=== PATIENT | male | born 1995 | race Caucasian/White ===

== ENCOUNTER 2017-05-08 09:58 | Emergency (ER) | payer OTHER ==
[2017-05-08] MEDS ORDERED: LORazepam 2 MG/ML SYRINGE IM STA (10:24)
[2017-05-08] MEDS ORDERED: KETOROLAC 60 MG/2 ML VIAL IM STA (10:25)
[2017-05-08 10:33] LABS: Glucose,Whole Blood 95 mg/dL (75-99)
--- NOTE | 2017-05-08 10:59 | XR ---
Lumbar spine HISTORY: Low back pain 3 views of the lumbar spine No comparisons Bone mineralization, joint spaces and alignment are maintained with the exception of some possible hellen int space loss at L5-S1. No paraspinal mass. IMPRESSION: There may be some degenerative disc change L5-S1.
--- NOTE | 2017-05-08 11:01 | XR ---
EXAMINATION TYPE: XR chest 2V DATE OF EXAM: 05/08/2017 COMPARISON: NONE HISTORY: Syncope TECHNIQUE: Frontal and lateral views of the chest are obtained. FINDINGS: There is no focal air space opacity, pleural effusion, or pneumothorax seen. The cardiac silhouette size is within normal limits. The osseous structures are intact. IMPRESSION: No acute cardiopulmonary process.
[2017-05-08 11:12] LABS: Appearance,Urine Clear (Clear); Bilirubin,Urine Negative (Negative); Glucose,Urine (UA) Negative (Negative); Ketones,Urine 3+ (Negative); Leukocyte Esterase,Urine Negative (Negative); Mucus,Urine Occasional /hpf; Nitrite,Urine Negative (Negative); PH, Urine 8.5 (5.0-8.0); Particle Count 5166; Protein,Urine 1+ (Negative); RBC,Urine 2 /hpf (0-5); Specific Gravity,Urine 1.023 (1.001-1.035); UA Billing (MACRO vs. MICRO) MICRO; WBC,Urine 1 /hpf (0-5)
--- NOTE | 2017-05-08 11:19 | ED ---
General Adult HPI - General Chief complaint: Syncope Stated complaint: syncope Time Seen by Provider: 05/08/17 10:19 Source: patient Mode of arrival: wheelchair Limitations: no limitations - History of Present Illness Initial comments: This 21-year-old white male presents with the complaint of some low back pain. He states that this occurred this morning at around 7 AM. He denies any actual injury. He states that it was fairly severe. It occurred while at work. He apparently got quite anxious and was hyperventilating. He became very lightheaded and dizzy and states that his hands were cramping up and feeling heavy. He apparently had a syncopal episode. He was having significant hyperventilation. He states that his symptoms are somewhat better at this time but still present. He denies any actual chest pain. He denies any trauma. He denies any previous known anxiety reactions. No modifying factors. He does smoke but denies any alcohol or drugs. He denies any chronic medical conditions. He relates that the pain in his back is similar as when he had pneumonia previously. He does relate a slight cough as well. - Related Data Previous Rx's Medication Instructions Recorded Diazepam [Valium] 2 mg PO QID PRN #15 tab 05/08/17 Ibuprofen [Motrin] 800 mg PO Q8H PRN #20 tab 05/08/17 Allergies Allergy/AdvReac Type Severity Reaction Status Date / Time No Known Allergies Allergy Verified 05/08/17 11:03 Review of Systems ROS Statement: Those systems with pertinent positive or pertinent negative responses have been documented in the HPI. ROS Other: All systems not noted in ROS Statement are negative. Past Medical History Past Medical History: No Reported History History of Any Multi-Drug Resistant Organisms: None Reported Past Surgical History: No Surgical Hx Reported Past Psychological History: No Psychological Hx Reported Smoking Status: Current every day smoker Past Alcohol Use History: None Reported Past Drug Use History: Marijuana General Exam - General Exam Comments Initial Comments: GENERAL: The patient is well nourished and well hydrated. VITAL SIGNS: Heart rate, blood pressure, respiratory rate reviewed as recorded in nurse's notes. EYES: Pupils are round and reactive. Extraocular movements are intact. No conjunctival / lid redness or swelling. ENT: No external evidence of injury, swelling, or ecchymosis. Airway is patent. Throat is clear. NECK: Nontender. No swelling or evidence of injury. No subcutaneous emphysema. Trachea is midline. No thyroid mass. HEART: Regular rate and rhythm. Good peripheral pulses. LUNGS/CHEST: Breath sounds clear and equal bilaterally. No rales, rhonchi, or wheezes. No ecchymosis, subcutaneous emphysema, or tenderness. ABDOMEN: Abdomen soft without tenderness. No palpable masses or organomegaly. No peritoneal signs. No abdominal wall swelling or ecchymosis. EXTREMITIES: No extremity tenderness. Normal muscle tone and function. There is some tenderness in the bilateral lumbar region in the paraspinal musculature but not over the vertebral. NEUROLOGIC: Sensation is grossly intact. Cranial nerve exam reveals face is symmetrical, tongue is midline, speech is clear. SKIN: No abrasions or ecchymosis is noted. No induration or masses noted. PSYCHIATRIC: Alert and oriented. Appears very anxious. Limitations: no limitations Course Vital Signs 05/08/17 10:02 Temperature 97.8 F Pulse Rate 108 H Respiratory 32 H Rate Blood Pressure 135/93 O2 Sat by Pulse 100 Oximetry Medical Decision Making - Medical Decision Making The patient was seen and examined. All diagnostics were reviewed. An EKG was done which shows a normal sinus rhythm at a rate of 73. There is no acute ST-T wave changes identified. The MO interval is 138, the QRS duration is 86, and the QTc interval is 385. He does receive some Toradol and Ativan IM. The chest x-ray did not show any evidence of pneumonia or acute process. The lumbar spine x-ray showed some slight degenerative changes at L5-S1 but no acute processes noted. The blood sugar is normal. Overall, is felt that he likely does have a lumbar strain. He also had an anxiety reaction. He is remarkably improved on recheck after receiving the medications. Is counseled regarding his diagnoses in detail and leaves in no severe distress. - Lab Data Lab Results 05/08/17 05/08/17 Range/Units 10:20 10:30 POC Glucose (mg/dL) 95 (75-99) mg/dL POC Glu [employer] Analyst ID Kate [place] Urine Color Yellow Urine Appearance Clear (Clear) Urine pH 8.5 H (5.0-8.0) Ur Specific [place] 1.023 (1.001-1.035) Urine Protein 1+ H (Negative) Urine Glucose (UA) Negative (Negative) Urine Ketones 3+ H (Negative) Urine Blood Negative (Negative) Urine Nitrite Negative (Negative) Urine Bilirubin Negative (Negative) Urine Urobilinogen 2.0 (<2.0) mg/dL Ur Leukocyte Esterase Negative (Negative) Urine RBC 2 (0-5) /hpf Urine WBC 1 (0-5) /hpf Urine Mucus Occasional H (None) /hpf Disposition Clinical Impression: Lumbar back pain, Cough, Anxiety reaction, Degenerative disc disease at L5-S1 level Disposition: HOME SELF-CARE Condition: Good Instructions: Low Back Strain (ED), Osteoarthritis (ED), Panic Attack (ED) Prescriptions: Diazepam [Valium] 2 mg PO QID PRN #15 tab PRN Reason: Anxiety Ibuprofen [Motrin] 800 mg PO Q8H PRN #20 tab PRN Reason: Pain Referrals: None,Stated [Primary Care Provider] - 1-2 days Time of Disposition: 11:36
[2017-05-08 11:48] VITALS: BP 105/68; PULSE 87; RESP 18; TEMP 98.9
== END 2017-05-08 11:48 | disposition home or self-care (01) ==
LOC: EC 09:58
DX: M51.37 Other intervertebral disc degeneration, lumbosacral region (principal); F41.1 Generalized anxiety disorder; R05 Cough; F17.200 Nicotine dependence, unspecified, uncomplicated
CPT/HCPCS: 36415; 93005; 81001; 71020; 72100; 99284; 96372 ×2; J2060; J1885

== ENCOUNTER 2024-03-15 20:19 | Emergency (ER) | payer BC ==
[2024-03-15 20:52] VITALS: TEMP 98
--- NOTE | 2024-03-15 21:22 | ED ---
Head Injury HPI - General Chief complaint: Wound/Laceration Stated complaint: Facial Swelling-Sports Injury Time Seen by Provider: 03/15/24 21:01 Source: patient, RN notes reviewed Mode of arrival: ambulatory Limitations: no limitations - History of Present Illness Initial comments: This is a 28-year-old male who presents to the emergency department for a head injury. Patient was playing softball this evening and was fielding a ground ball at second base. States that the ball came up and hit him in the face. Pain and swelling is primarily underneath the left eye. Denies any difficulty with his vision or pain to the eye itself. He does have some lacerations to the cheek, unsure when his last tetanus vaccine was. Denies any loss of consciousn ess. Does not take any blood thinners. MD Complaint: head injury - Related Data Previous Rx's Medication Instructions Recorded Ibuprofen [Motrin] 800 mg PO Q8H PRN #20 tab 05/08/17 diazePAM [Valium] 2 mg PO QID PRN #15 tab 05/08/17 Amoxic-Pot Clav 875-125Mg 1 tab PO Q12HR 7 Days #14 tab 03/15/24 [Augmentin 875-125] Naproxen Sodium 550 mg PO BID PRN #20 tablet 03/15/24 predniSONE 50 mg PO DAILY 3 Days #3 tab 03/15/24 Allergies/Adverse reactions: Allergies Allergy/AdvReac Type Severity Reaction Status Date / Time No Known Allergies Allergy Verified 03/15/24 20:52 Review of Systems ROS Statement: Those systems with pertinent positive or pertinent negative responses have been documented in the HPI. ROS Other: All systems not noted in ROS Statement are negative. Past Medical History Past Medical History: No Reported History History of Any Multi-Drug Resistant Organisms: None Reported Past Surgical History: No Surgical Hx Reported Past Psychological History: No Psychological Hx Reported Smoking Status: Current every day smoker, Vaper Past Alcohol Use History: None Reported Past Drug Use History: Marijuana General Exam Limitations: no limitations General appearance: alert, in no apparent distress Head exam: Present: other (Swelling and ecchymosis just inferior to the left eye. Superficial lacerations over the area of ecchymosis with minor active bleeding.) Eye exam: Present: PERRL, EOMI ENT exam: Present: TM's normal bilaterally, normal external ear exam, other (No septal hematoma bilaterally) Respiratory exam: Present: normal lung sounds bilaterally. Absent: respiratory distress, wheezes, rales, rhonchi, stridor Cardiovascular Exam: Present: regular rate, normal rhythm, normal heart sounds. Absent: systolic murmur, diastolic murmur, rubs, gallop, clicks Neurological exam: Present: alert, oriented X3, CN II-XII intact Psychiatric exam: Present: normal affect, normal mood Course Vital Signs 03/15/24 03/15/24 20:48 22:26 Temperature 98.0 F Pulse Rate 88 67 Respiratory 26 H 16 Rate Blood Pressure 123/81 116/87 O2 Sat by Pulse 97 99 Oximetry Procedures - Laceration Laceration #1 Consent Obtained: verbal consent Indication: laceration Site: face Size (cm): 2 Description: linear Depth: simple, single layer Type of Sutures: other (Exofin) Medical Decision Making - Medical Decision Making This is a 28 year old male who presents to the emergency department for a head injury. Was pt. sent in by a medical professional or institution? @ -No Did you speak to anyone other than the patient for history? @ -No Did you review nursing and triage notes? @ -Yes, and I agree, it is accurate with regards to the patient's symptoms. Were old charts reviewed? @ -No Differential Diagnosis? @ -Differential Diagnosis Head Injury: Contusion, hematoma, intracranial hemorrhage, skull fracture, whiplash, concussion, this is not meant to be an all-inclusive list. EKG interpreted by me (3pts min.)? @ -Not obtained X-rays interpreted by me (1pt min.)? @ -Not obtained CT interpreted by me (1pt min.)? @ -CT scan of the brain and facial bones obtained. My interpretation identifies a left maxillary sinus fracture. U/S interpreted by me (1pt. min.)? @ -Not obtained What testing was considered but not performed? (CT, X-rays, U/S, labs)? Why? @ -None What meds were considered but not given? Why? @ -None Did you discuss the management of the patient with other professionals? @ -No Did you reconcile home meds? @ -No Was smoking cessation discussed for >3mins.? @ -I discussed smoking cessation for greater than 3 minutes. The risk of smoking were discussed with the patient including but not limited to risks of cancer, stroke, coronary artery disease and COPD. Also discussed with patient were multiple methods of quitting smoking. Lastly we discussed the financial cost of smoking. Was critical care preformed (if so, how long)? @ -No Were there social determinants of health that impacted care today? How? (Homelessness, low income, unemployed, alcoholism, drug addiction, transportation, low edu. Level, literacy, decrease access to med. care, [facility], rehab)? @ -No Was there de-escalation of care discussed even if they declined? (Discuss DNR or withdrawal of care, Hospice)? @ -No What co-morbidities impacted this encounter? (DM, HTN, Smoking, COPD, CAD, Cancer, CVA, Hep., AIDS, mental health diagnosis, sleep apnea, morbid obesity)? @ -Smoking Was patient admitted / discharged? @ -Discharged. CT scan of the brain and facial bones obtained demonstrating a fracture of the anterior wall of the left maxillary sinuses. There is no entrapment and the patient is not having any problems with the eyeball itself. I had ordered a tetanus vaccine due to associated laceration, however patient refused despite my strongest recommendations. LET was applied to the lacerations and they were closed with Exofin. Will start patient on Augmentin for infectious prophylaxis and he was given a prescription for prednisone over the next couple of days as well. Naproxen prescribed for pain control. Nose blowing precautions reviewed and he is also advised to use saline nasal spray. Information for ENT follow-up provided, and he is advised to contact them for a follow-up appointment. Undiagnosed new problem with uncertain prognosis? @ -None Drug Therapy requiring intensive monitoring for toxicity (Heparin, Nitro, Insulin, Cardizem)? @ -None Were any procedures done? @ -Laceration repair with exofin Diagnosis/symptom? @ -Head injury, maxillary sinus fracture, laceration Acute, or Chronic, or Acute on Chronic? @ -Acute Uncomplicated (without systemic symptoms) or Complicated (systemic symptoms)? @ -Uncomplicated Side effects of treatment? @ -None Exacerbation, Progression, or Severe Exacerbation] @ -Not applicable Poses a threat to life or bodily function? @ -No Return precautions reviewed in depth, the patient is instructed to return to the emergency department with any new, worsening, or concerning symptoms. Patient verbalized understanding. This case was discussed in detail with the attending ED physician, Dr. Dixon. Presentation, findings, and treatment plan discussed in detail as well. - Radiology Data Radiology results: report reviewed, image reviewed Disposition Clinical Impression: Maxillary sinus fracture, Laceration, Head injury, Nicotine dependence Disposition: HOME SELF-CARE Instructions (If sedation given, give patient instructions): Facial Fracture (ED), Skin Adhesive Care (ED) Additional Instructions: Return to the emergency department with any new, worsening, or concerning symptoms. Keep the area dry, do not apply topical medications, and do not rub, scratch, or pick at the wound. The adhesive will naturally fall off within 5-10 days. Take the antibiotic as prescribed for 7 days. Take the prednisone daily for an additional 3 days. Take the naproxen as needed for pain relief. You may take this with Tylenol, however do not take it with any other anti- inflammatories such as ibuprofen if you choose to take this. Avoid blowing your nose. Use [id number] saline nasal spray several times each day. Contact the ear nose and throat providers listed below and see who is able to schedule you for a follow-up appointment. Let them know that you were seen in the emergency department for a facial injury and found to have a maxillary sinus fracture. Follow up with your primary care provider in 1-2 days. Prescriptions: Amoxic-Pot Clav 875-125Mg [Augmentin 875-125] 1 tab PO Q12HR 7 Days #14 tab Naproxen Sodium 550 mg PO BID PRN #20 tablet PRN Reason: Pain predniSONE 50 mg PO DAILY 3 Days #3 tab Is patient prescribed a controlled substance at d/c from ED?: No Referrals: None,Stated [Primary Care Provider] - 1-2 days Jose Peraza MD [STAFF PHYSICIAN] - 1-2 days Israel Hernandez DO [Doctor of Osteopathic Medicine] - 1-2 days Time of Disposition: 22:14
--- NOTE | 2024-03-15 21:30 | CT ---
EXAMINATION TYPE: CT brain wo con DATE OF EXAM: 03/15/2024 COMPARISON: None HISTORY: pt hit in left cheek with softball. lacerations, swelling, bruising noted. CT DLP: 766.1 mGycm. Automated Exposure Control for Dose Reduction was Utilized. TECHNIQUE: CT scan of the head is performed without contrast. FINDINGS: Findings: The ventricles, basal cisterns and sulci over the convexities are within normal limits and there is n o mass effect or shift of midline structures. No abnormal density is seen throughout the brain parenchyma and there is no acute intra or extra-axia l hemorrhage. The posterior fossa including the brainstem, fourth ventricle and cerebellar pontine angles appear no rmal. Intraorbital contents appear normal and symmetric. There is an air-fluid level in the left maxillary sinus. The calvarium is intact. IMPRESSION: 1. No acute bleed or mass effect. 2. Calvarium is intact. 3. Air-fluid level left exercise indicating either acute inflammation or trauma.
--- NOTE | 2024-03-15 21:33 | CT ---
EXAMINATION TYPE: CT facial bones wo con DATE OF EXAM: 03/15/2024 COMPARISON: None HISTORY: pt hit in left cheek with softball. lacerations, swelling, bruising noted. CT DLP: 766.1 mGycm Automated exposure control for dose reduction was used. TECHNIQUE: CT scan of the sinuses is performed without contrast, axial images are obtained, coronal r eformatted images are also reviewed. FINDINGS: There is a comminuted compressed and mildly displaced fracture involving the anterior wall of the lef t maxillary sinus. There is a air-fluid level within the sinus consistent with acute trauma. The remaining facial bones are intact. Intraorbital contents are normal symmetric. The mandible is intact. The mastoid air cells and middle ear cavities are well-aerated. IMPRESSION: Fractures of the anterior wall left maxillary sinuses described above.
[2024-03-15] MEDS: LIDOCAINE/EPINEPHR/TETRACAINE 5 ML BOTTLE TOPICAL ONE (21:37)
[2024-03-15] MEDS: TOPICAL SKIN ADHESIVE 1 EACH AMP TOPICAL ONE (21:37)
[2024-03-15] MEDS: IBUPROFEN 800 MG TAB PO STA (21:37)
[2024-03-15] MEDS: DIPH,PERTUS(ACELL)TETVAC-LF 0.5 ML VIAL IM ONE (21:41)
[2024-03-15] MEDS: HYDROcodone/APAP 5-325MG 1 EACH TAB PO STA (21:41)
[2024-03-15] MEDS: predniSONE 50 MG TAB PO STA (22:21)
[2024-03-15] MEDS: AMOXIC-POT CLAV 875-125MG 1 EACH TAB PO STA (22:21)
[2024-03-15] MEDS: ACET/COD 300 MG/30 MG STARTER PACK 6 TAB BTL PO STA (22:21)
[2024-03-15 22:28] VITALS: BP 116/87; PULSE 67; RESP 16
== END 2024-03-15 22:27 | disposition home or self-care (01) ==
LOC: EC 20:19
DX: S02.40DA Maxillary fracture, left side, initial encounter for closed fracture (principal); F17.290 Nicotine dependence, other tobacco product, uncomplicated; W21.03XA Struck by baseball, initial encounter; Y93.64 Activity, baseball
CPT/HCPCS: 70486; 70450; 99406; 12011; 99283; J7512